=== PATIENT | female | born 1960 | race Caucasian/White ===

== ENCOUNTER 2019-03-21 06:03 | Day surgery (SDC) | payer BC ==
[2019-03-21] MEDS ORDERED: Midazolam 1 MG/ML 2 ML SDV IV ONE ×7 (06:04→07:01)
[2019-03-21] MEDS ORDERED: fentaNYL 100 MCG/2 ML SDV IV ONE ×4 (06:04→07:04)
[2019-03-21] MEDS ORDERED: Midazolam 1 MG/ML 2 ML SDV ONE (06:29)
[2019-03-21] MEDS ORDERED: fentaNYL 100 MCG/2 ML SDV ONE (06:29)
[2019-03-21] MEDS ORDERED: Dextrose 5%-0.45% NaCl 1,000 ML IV SCH (06:30)
--- NOTE | 2019-03-21 11:30 | OR ---
DATE: 03/21/2019 PREOPERATIVE DIAGNOSIS: Screening colonoscopy. POSTOPERATIVE DIAGNOSIS: Screening colonoscopy. PROCEDURE: Total colonoscopy. ANESTHESIA: Conscious sedation with IV Versed and fentanyl. SPECIMEN: None. OPERATIVE FINDINGS: Normal colonoscopy. RECOMMENDATIONS: Followup screening colonoscopy 10 years or sooner for symptoms. INDICATION FOR PROCEDURE: This 58-year-old female presents for screening colonoscopy. PROCEDURE IN DETAIL: After adequate preparation, a colonoscope was inserted into the rectum. This was easily passed all the way to the cecum. Confirmation of the cecum was made by visualization of the ileocecal valve and palpation in the right lower quadrant. I could also see a light shining through the right lower quadrant and the groin area. The bowel prep was very good. On withdrawal of the scope, a good examination of the colon was accomplished. She has a possible few diverticula on the left colon, but these are not significant at all. No other abnormalities were noted. There were no polyps, bleeding sites, masses, or evidence of colitis. Anal and rectal examination were also normal. Air was suctioned from the colon and the scope removed. [facility] /[id number]
== END 2019-03-21 09:00 | disposition home or self-care (01) ==
LOC: DL.ENDO 06:03
PROVIDERS: ATTEND Surgery
DX: Z12.11 Encounter for screening for malignant neoplasm of colon (principal); Z91.041 Radiographic dye allergy status; Z88.8 Allergy status to other drugs, medicaments and biological substances; Z79.890 Hormone replacement therapy; Z79.899 Other long term (current) drug therapy
CPT/HCPCS: 45378; J2250; J3010; J7042; G0121